=== PATIENT | female | born 1980 | race Caucasian/White ===

== ENCOUNTER 2021-01-11 16:13 | Emergency (ER) | payer MEDICAID, SELFPAY ==
[2021-01-11 16:20] VITALS: BP 151/86; PULSE 118; RESP 18; TEMP 36.9; O2SAT 98; BMI 22.4
--- NOTE | 2021-01-11 16:27 | CTR_ITS ---
PROCEDURE INFORMATION: Exam: CT Head Without Contrast Exam date and time: 01/11/2021 4:29 PM Age: 40 years old Clinical indication: Other: Seizure TECHNIQUE: Imaging protocol: Computed tomography of the head without contrast. Radiation optimization: All CT scans at this facility use at least one of these dose optimization techniques: automated exposure control; mA and/or kV adjustment per patient size (includes targeted exams where dose is matched to clinical indication); or iterative reconstruction. COMPARISON: CT head wo con* [id number] 04/24/2015 3:35 PM RADIATION DOSE METRICS: Total DLP (mGy-cm): 862.89 FINDINGS: Brain: No acute intracranial hemorrhage or mass effect. No definite acute infarct by CT. MRI could be more sensitive/specific for detection, as clinically directed. Cerebral ventricles: Ventricle size is normal for age. Paranasal sinuses: Included paranasal sinuses are essentially clear. Mastoid air cells: No significant acute finding. Bones/joints: No definite acute skull fracture. CT/CT head wo con* [id number] IMPRESSION: 1. No acute intracranial hemorrhage or mass effect. 2. No definite acute infarct by CT, see above. 3. Other findings discussed above. Radiation Dose CTDIVOL = (mGy): DLP = 862.89 (mGy-cm)
--- NOTE | 2021-01-11 16:29 | W.ED.SEIZURE ---
HPI - Seizure General: Chief Complaint: Seizure Stated Complaint: SEIZURE Time Seen by Provider: 01/11/21 16:22 History of Present Illness: HPI Narrative: 41-year-old female presents emergency room stating she had a seizure. States she has a history of seizures going back 10+ years. She tells me she takes Xanax several times a day to avoid her seizures she has not been on anything else for some time. She does states she previously had an EEG was done by Dr. Durham. She describes the seizures as tonic-clonic in nature. She does not appear to be postictal at this time. She has no head trauma there is no loss of bowel or bladder control. MD complaint: possible seizure Onset (ago): minute(s) Description of Episode: loss of consciousness and tonic-clonic movement Witnessed: Yes - by Bystander Trauma: No Seizure History: Yes Place: Work Possible Precipitating Event: none Associated symptoms: Deny chest pain, chills, confusion, cough, diaphoresis, fever(s), anorexia, malaise, rash, short of breath, syncope or weakness Treatments prior to arrival: none Review of Systems Const: Denies: fever(s), chills, malaise or diaphoresis ENMT: Denies: throat pain, ear or mastoid pain, nasal discharge or nasal congestion Card: Denies: chest pain or syncope Resp: Denies: dyspnea, productive cough or non-productive cough GI: Denies: abdominal pain, nausea, vomiting, hematemesis, coffee ground emesis, diarrhea, constipation, bloating, hematochezia or melena : Denies: flank pain, difficulty voiding, dysuria, urinary frequency or urinary urgency Skin/Breast: Denies: rash or pruritus Neuro: Denies: confusion Physical Exam Const: COMMON NORMALS: no acute distress GENERAL APPEARANCE: cooperative and comfortable ORIENTATION/CONSCIOUSNESS: Yes awake, Yes oriented to person, Yes oriented to place and Yes oriented to time HENMT: COMMON NORMALS: normocephalic, atraumatic, hearing grossly normal bilaterally and external ears normal HEAD & SCALP: normocephalic and atraumatic EXTERNAL EAR: Yes external ears normal Neck/C-Spine: COMMON NORMALS: no JVD Resp: COMMON NORMALS: normal respiratory effort, No retractions, No use of accessory muscles and clear to auscultation bilaterally AUSCULTATION: clear to auscultation bilaterally Cardio: COMMON NORMALS: no JVD, regular rate, regular rhythm and No murmurs present (Cardio) RATE: regular rate RHYTHM: regular rhythm GI: COMMON NORMALS: Soft to palpation and No hepatosplenomegaly present AUSCULTATION: Yes normoactive bowel sounds PALPATION: Yes Soft to palpation, No Tenderness to palpation present (GI), No Guarding due to palpation present (GI) and Yes No hepatosplenomegaly present Extremity: COMMON NORMALS: normal to inspection, capillary refill normal, no clubbing, cyanosis or edema, no calf tenderness and no pedal edema Neuro: SENSORIUM/ORIENTATION: Yes oriented to person, Yes oriented to place and Yes oriented to time Skin: COMMON NORMALS: no rashes or lesions noted GENERAL SKIN EXAM: no rashes or lesions noted Course Vital Signs: Vital signs: Vital Signs Temperature 98.4 F 01/11/21 16:20 Pulse Rate 105 H 01/11/21 18:11 Respiratory Rate 18 01/11/21 18:11 Blood Pressure 151/88 01/11/21 18:11 Pulse Oximetry 97 01/11/21 18:11 MDM - Seizure MDM Narrative: Medical decision making narrative: Patient was not postictal on arrival. Concerning and that she manages this seizure disorder with nothing but alprazolam. She states she has been doing this for several years. The remainder of labs and evaluation are negative. Organ to go ahead and discharge her home for now we will set up for an outpatient EEG and follow-up with Dr. Durham afterwards. Given the history and her presentation today I did not start her on any antiseizure medications at this time. Lab Data: Labs: Lab Results 01/11/21 01/11/21 Range/Units 16:36 16:36 WBC 11.6 H (4.0-10.0) 10^3/ uL RBC 5.47 H (4.1-5.3) 10^6/u L Hgb 16.5 H (11.5-15.3) g/dL Hct 47.8 H (37.0-47.0) % MCV 87.4 (81-99) fL MCH 30.2 (28.0-34.0) pg MCHC 34.5 (30.0-36.0) g/dL RDW 13.7 (12.1-15.1) % Plt Count 239 (130-400) 10^3/c mm MPV 10.4 (7.4-10.4) fL Neut % (Auto) 67.3 % Lymph % (Auto) 24.8 % [place] % (Auto) 5.7 % Eos % (Auto) 1.0 % Baso % (Auto) 0.8 % Neut # (Auto) 7.80 H (1.8-7.7) 10^3/u L Lymph # (Auto) 2.9 (0.8-4.8) 10^3/u L [place] # (Auto) 0.7 (0.2-0.9) 10^3/u L Eos # (Auto) 0.1 (0.0-0.8) 10^3/u L Baso # (Auto) 0.1 (0.0-0.1) 10^3/u L Nucleated RBC % (a uto) 0 % Nucleated RBCs # 0.0 /100WBC Sodium 136 (136-145) mmol/L Potassium 3.7 (3.5-5.1) mmol/L Chloride 102 (98-107) mmol/L Carbon Dioxide 19 L (22-29) mmol/L Anion Gap 18.7 (5-19) BUN 6 (6-20) mg/dL Creatinine 0.8 (0.5-0.9) mg/dL GFR Calculation 78.7 L (90-130) mL/min Glucose 113 (65-115) mg/dL Calculated Osmolal ity 280 L (285-295) mOsm/k g Calcium 9.1 (8.5-10.5) mg/dL Total Bilirubin 0.3 (0.15-1.2) mg/dL AST 15 (0-32) U/L ALT 13 (0-33) U/L Alkaline Phosphata se 64 (35-105) IU/L Total Protein 7.2 (6.6-8.7) g/dL Albumin 4.7 (3.5-5.2) g/dL Globulin 2.5 (1.3-4.6) g/dL Discharge Plan Discharge Patient Disposition: Home Clinical Impression: Generalized seizure Condition: Stable Prescriptions: No Action alprazolam 1 mg tablet 1 mg PO QID PRN (Reason: Anxiety) RF: 0 Discharge Orders: Discharge ED (Routine); Ordered 01/11/21 Ordered By: Car Garcia Referrals: Chantell Echeverria, [Primary Care Provider] - Discharge Diet: Usual diet Discharge Activity: Resume usual activity Patient Instructions: Opioid Safety Activity Restrictions/Additional Instructions: Case management will call to make an appointment with Dr. Durham for follow-up on seizures. We will also call to make an appointment for a EEG. Coding Level of Care Code ED Gear Grinding Machine Operator for Chg Fwd Exam Comprehensive
[2021-01-11 16:53] LABS: Basophils # 0.1 10^3/uL (0.0-0.1); Basophils % 0.8 %; Eosinophils # 0.1 10^3/uL (0.0-0.8); Hematocrit 47.8 % (37.0-47.0); Hemoglobin 16.5 g/dL (11.5-15.3); Lymphocytes # 2.9 10^3/uL (0.8-4.8); Lymphocytes % 24.8 %; Mean Corpuscular HGB Conc 34.5 g/dL (30.0-36.0); Mean Corpuscular Hemoglobin 30.2 pg (28.0-34.0); Mean Corpuscular Volume 87.4 fL (81-99); Mean Platelet Volume 10.4 fL (7.4-10.4); Monocytes # 0.7 10^3/uL (0.2-0.9); Monocytes % 5.7 %; Neutrophils % 67.3 %; Nucleated Red Blood Cells % 0 %; Platelet Count 239 10^3/cmm (130-400); Red Blood Count 5.47 10^6/uL (4.1-5.3); Red Cell Distribution Width 13.7 % (12.1-15.1); White Blood Count 11.6 10^3/uL (4.0-10.0)
[2021-01-11 17:40] LABS: Alanine Aminotransferase 13 U/L (0-33); Albumin Level 4.7 g/dL (3.5-5.2); Alkaline Phosphatase 64 IU/L (35-105); Anion Gap 18.7 (5-19); Aspartate Amino Transferase 15 U/L (0-32); Blood Urea Nitrogen 6 mg/dL (6-20); Calcium 9.1 mg/dL (8.5-10.5); Carbon Dioxide 19 mmol/L (22-29); Chloride 102 mmol/L (98-107); Globulin 2.5 g/dL (1.3-4.6); Glomerular Filtration Rate 78.7 mL/min (90-130); Glucose 113 mg/dL (65-115); Osmolality Calculated 280 mOsm/kg (285-295); Potassium 3.7 mmol/L (3.5-5.1); Sodium 136 mmol/L (136-145); Total Bilirubin 0.3 mg/dL (0.15-1.2); Total Protein 7.2 g/dL (6.6-8.7)
[2021-01-11 18:11] VITALS: BP 151/88; PULSE 105; RESP 18; O2SAT 97
--- NOTE | 2021-01-13 09:49 | DCPLANNER ---
Addendum entered by Ingrid Jean 01/18/21 11:45: manager cash sent email to Veronica at Dr. Tsang office to check on appointment for EEG and Dr. Durham. Original Note: manager cash had message to schedule an outpatient EEG and a follow up with Dr. Durham. manager cash faxed order for EEG to the office of Dr. Durham. manager cash emailed patients information to Veronica at Dr. Tsang office. Patients information will be printed and reviewed. Clinic will call patient with appointment information.
--- NOTE | 2021-01-23 07:33 | DCPLANNER ---
it help desk manager was told that when clinic called patient to schedule a follow up appointment, that patient declined at this time saying she wanted to follow up with primary care.
== END 2021-01-11 18:13 | disposition home or self-care (01) ==
PROVIDERS: Emergency Provider Family Medicine; PCP Family Medicine
DX: G40.409 Other generalized epilepsy and epileptic syndromes, not intractable, without status epilepticus (principal)
CPT/HCPCS: 70450; 80053; 85025; 99283

== ENCOUNTER → 2022-07-20 15:15 | Outpatient (BNVA) | payer MEDICAID, SELFPAY | PROVIDERS: PCP Family Medicine; Visit Provider Obstetrics & Gynecology | DX: R53.83 Other fatigue (principal) | CPT/HCPCS: 83001; 84146; 84443; 84702; 85025 ==

== ENCOUNTER → 2022-08-17 13:33 | Outpatient (BNVA) | payer MEDICAID, SELFPAY | PROVIDERS: PCP Family Medicine; Visit Provider Obstetrics & Gynecology | DX: R10.2 Pelvic and perineal pain (principal) | CPT/HCPCS: 76830 ==

== ENCOUNTER 2024-04-16 18:55 | Emergency (ER) | payer SELFPAY ==
[2024-04-16 19:07] VITALS: BP 171/93; PULSE 117; RESP 26; TEMP 39; O2SAT 98; BMI 22.3
--- NOTE | 2024-04-16 19:14 | XRR_ITS ---
PROCEDURE INFORMATION: Exam: XR Chest Exam date and time: 04/16/2024 7:30 PM Age: 43 years old Clinical indication: Shortness of breath; Additional info: Cough, TECHNIQUE: Imaging protocol: Radiologic exam of the chest. Views: 1 view. COMPARISON: No relevant prior studies available. FINDINGS: Lungs: Bilateral upper lobe pneumonia. Emphysematous changes. Pleural spaces: Unremarkable. No pleural effusion. No pneumothorax. Heart/Mediastinum: Unremarkable. No cardiomegaly. Bones/joints: Unremarkable. XR/XR chest 1V portable [id number] IMPRESSION: 1. Bilateral upper lobe pneumonia. 2. Emphysematous changes.
--- NOTE | 2024-04-16 19:16 | ED_ITS ---
HPI - SOB/Dyspnea 2 General: Chief Complaint: Shortness of Breath/Dyspnea Stated Complaint: CP worse when lay down SOB Time Seen by Provider: 04/16/24 19:14 History of Present Illness: HPI Narrative: 43-year-old female comes in today for co mplaints of illness x 3 days. Patient reports difficulty with lying flat due to not being able to breathe through her nose. Patient feels short of breath. Patient was seen to have a temperature of 102.2. Patient also was concerned due to having some crusted lesions 1 to her lower leg and 1 to her chest wall. Patient denies any chronic medical problems. Patient reports smoking tobacco but has not smoked since becoming ill. Patient has been using nicotine lozenges. Related Data Home Medications Medication Instructions Recorded Confirmed alprazolam 1 mg tablet 1 mg PO QID PRN Anxiety 01/11/21 10/12/22 norgestimate 0.25 mg-ethinyl 1 tab PO DAILY 07/20/22 10/12/22 estradiol 35 mcg tablet (Estarylla) Previous Rx's Medication Instructions Recorded albuterol sulfate 90 mcg/actuation 2 inh inhalation Q6H PRN shortness 04/16/24 aerosol inhaler of breath or wheezing #8.5 grams levofloxacin 500 mg tablet 500 mg PO DAILY 7 days #7 tabs 04/16/24 Allergies Allergy/AdvReac Type Severity Reaction Status Date / Time Penicillins Allergy Severe rash Verified 04/16/24 19:11 Review of Systems 2 General: Reports: 10 or more systems reviewed and unremarkable except in HPI and below Resp: Reports: dyspnea and non-productive cough PFS ED 2 PFSH: Family History Grandmother Thyroid condition maternal Breast cancer paternal, late 40's or early 50's Father Heart disease Family/Other Heart disease paternal uncles x2 Uterine cancer maternal aunt 47 y/o Ovarian cancer, Onset Age: 47 maternal aunt Mother Uterine cancer mid to late 40's Sister Uterine cancer, Onset Age: 38 Denies family history of Colon cancer Diabetes Clotting disorder Hyperlipidemia Anesthesia complication Bleeding disorder Hypertension Stroke Physical Exam 2 Const: COMMON NORMALS: alert HENMT: COMMON NORMALS: normocephalic HEAD & SCALP: normocephalic THROAT: posterior oropharynx normal Chest: COMMONS NORMALS: normal inspection of the chest Resp: COMMON NORMALS: normal respiratory effort and clear to auscultation bilaterally AUSCULTATION: clear to auscultation bilaterally Cardio: RATE: tachycardic GI: COMMON NORMALS: Soft to palpation PALPATION: Yes Soft to palpation Back/Pelvis: COMMON NORMALS: thoracic and lumbar spine normal to inspection Extremity: COMMON NORMALS: full ROM Neuro: SENSORIUM/ORIENTATION: Yes alert Skin: NARRATIVE SKIN EXAM: Healing crusted lesions Course 2 Vital Signs: Vital signs: Vital Signs Temperature 102.2 F H 04/16/24 19:07 Pulse Rate 116 H 04/16/24 20:30 Respiratory Rate 23 H 04/16/24 20:11 Blood Pressure 136/93 04/16/24 20:30 Pulse Oximetry 97 04/16/24 20:30 Oxygen Delivery Me thod Room Air 04/16/24 20:30 MDM - SOB/Dyspnea Medical Decision Making 43-year-old female comes in today for complaints of cough, fever, body aches, and illness x 3 days. Patient appears unwell but not toxic. Lungs have good air movement throughout. Patient is febrile 102.2 fever. Given is warm and dry. No edema's. Differential diagnosis pneumonia, bronchitis, upper respiratory infection, viral syndrome, dehydration. Chest x-ray noted bilateral upper lobe pneumonia and emphysematous changes. White blood cell count was 14,000. CRP was 150. CMP otherwise was unremarkable. Patient will be treated for bilateral upper lobe pneumonia with Levaquin. Lab Data 04/16/24 19:47 04/16/24 19:47 Labs/Radiology: Radiology Impressions Chest X-Ray 04/16/24 19:14 IMPRESSION: 1. Bilateral upper lobe pneumonia. 2. Emphysematous changes. Laboratory Results WBC 14.59 10^3/uL (3.29-11.43) H 04/16/24 19:47 RBC 4.73 10^6/uL (3.85-5.65) 04/16/24 19:47 Hgb 13.50 g/dL (11.27-16.99) 04/16/24 19:47 Hct 40.7 % (36-47) 04/16/24 19:47 MCV 86.0 fl (85-98) 04/16/24 19:47 MCH 28.5 pg (27-33) 04/16/24 19:47 MCHC 33.2 g/dL (30-55) 04/16/24 19:47 RDW 13.4 % (12.1-15.1) 04/16/24 19:47 Plt Count 408 10^3/cmm (157-399) H 04/16/24 19:47 MPV 9.1 fL (7.4-10.4) 04/16/24 19:47 Neut % (Auto) 67.2 % 04/16/24 19:47 Lymph % (Auto) 25.5 % 04/16/24 19:47 [place] % (Auto) 6.2 % 04/16/24 19:47 Eos % (Auto) 0.2 % 04/16/24 19:47 Baso % (Auto) 0.4 % 04/16/24 19:47 Neut # (Auto) 9.79 10^3/uL (1.8-7.7) H 04/16/24 19:47 Lymph # (Auto) 3.7 10^3/uL (0.8-4.8) 04/16/24 19:47 [place] # (Auto) 0.9 10^3/uL (0.2-0.9) 04/16/24 19:47 Eos # (Auto) 0.0 10^3/uL (0.0-0.8) 04/16/24 19:47 Baso # (Auto) 0.1 10^3/uL (0.0-0.1) 04/16/24 19:47 Nucleated RBC % (auto) 0 % 04/16/24 19:47 Nucleated RBCs # 0.0 /100WBC 04/16/24 19:47 Sodium 137 mmol/L (136-145) 04/16/24 19:47 Potassium 3.5 mmol/L (3.5-5.1) 04/16/24 19:47 Chloride 96 mmol/L (98-107) L 04/16/24 19:47 Carbon Dioxide 28 mmol/L (22-29) 04/16/24 19:47 Anion Gap 16.5 (5-19) 04/16/24 19:47 BUN 9 mg/dL (6-20) 04/16/24 19:47 Creatinine 0.8 mg/dL (0.5-0.9) 04/16/24 19:47 GFR Calculation 77.6 mL/min (90-130) L 04/16/24 19:47 Glucose 106 mg/dL (65-115) 04/16/24 19:47 Calculated Osmolality 283 mOsm/kg (285-295) L 04/16/24 19:47 Lactic Acid 1.6 mmol/L (0.5-2.2) 04/16/24 19:47 Calcium 9.0 mg/dL (8.5-10.5) 04/16/24 19:47 Total Bilirubin 0.3 mg/dL (0.15-1.2) 04/16/24 19:47 AST 20 U/L (0-32) 04/16/24 19:47 ALT 21 U/L (0-33) 04/16/24 19:47 Alkaline Phosphatase 110 U/L (35-105) H 04/16/24 19:47 C-Reactive Protein 153.7 mg/L (0.0-4.9) H 04/16/24 19:47 Total Protein 7.4 g/dL (6.6-8.7) 04/16/24 19:47 Albumin 3.6 g/dL (3.5-5.2) 04/16/24 19:47 Globulin 3.8 g/dL (1.3-4.6) 04/16/24 19:47 Coronavirus (PCR) Negative (Negative) 04/16/24 20:16 Influenza A (PCR) Negative (Negative) 04/16/24 20:16 Influenza Type B (PCR) Negative (Negative) 04/16/24 20:16 RSV (PCR) Negative (Negative) 04/16/24 20:16 All radiology interpretation(s) finalized by discharge EKG Data EKG 1: I personally reviewed and interpreted this EKG as follows: EKG Interpretation Date: 04/16/24 EKG interpretation time: 20:49 Prior EKG tracings: not available for review Interpretation: EKG shows a sinus tachycardia with a regular rate of the [address] elevations noted. No ectopy otherwise is noted. Artifact is present on the EKG. No prior exam was available for comparison. Computer Generated Interpretation: Sinus tachycardia with short NV interval. Nonspecific ST and T wave abnormality. Abnormal rhythm EKG. Unconfirmed report. Discharge Plan Discharge Patient Disposition: Home Clinical Impression: Pneumonia Qualifiers: Pneumonia type: due to unspecified organism Laterality: bilateral Lung location: upper lobe of lung Qualified Code(s): J18.9 - Pneumonia, unspecified organism Condition: Stable Prescriptions: New levofloxacin 500 mg tablet 500 mg PO DAILY 7 Days Qty: 7 0RF albuterol sulfate 90 mcg/actuation HFA aerosol inhaler 2 inh inhalation Q6H PRN (Reason: shortness of breath or wheezing) Qty: 8.5 0RF No Action norgestimate-ethinyl estradiol [Estarylla] 0.25-35 mg-mcg tablet 1 tab PO DAILY alprazolam 1 mg tablet 1 mg PO QID PRN (Reason: Anxiety) Discharge Orders: Discharge ED (Routine); Ordered 04/16/24 Ordered By: Jaison Alatorre Referrals: Chantell Echeverria DO [Primary Care Provider] - Discharge Diet: Usual diet Discharge Activity: Increase activity as tolerated Patient Instructions: Pneumonia (ED) Activity Restrictions/Additional Instructions: Drink plenty of water and fluids. Take antibiotic as directed. Use albuterol 2 puffs every 4-6 hours as needed for cough, shortness of breath, or wheezing. Take an acetaminophen or ibuprofen for pain and fever. Follow-up with primary care in 2 to 3 days for recheck. Return to ED for worsening symptoms such as inability to hold fluids down, worsening shortness of breath, or new concerns. Coding Level of Care Code ED Ice Cream Scooper for Guanako Heaton
[2024-04-16 19:53] LABS: Basophils # 0.1 10^3/uL (0.0-0.1); Basophils % 0.4 %; Eosinophils % 0.2 %; Hematocrit 40.7 % (36-47); Lymphocytes # 3.7 10^3/uL (0.8-4.8); Lymphocytes % 25.5 %; Mean Corpuscular HGB Conc 33.2 g/dL (30-55); Mean Corpuscular Hemoglobin 28.5 pg (27-33); Mean Platelet Volume 9.1 fL (7.4-10.4); Monocytes # 0.9 10^3/uL (0.2-0.9); Monocytes % 6.2 %; Neutrophils # 9.79 10^3/uL (1.8-7.7); Neutrophils % 67.2 %; Nucleated Red Blood Cells % 0 %; Platelet Count 408 10^3/cmm (157-399); Red Blood Count 4.73 10^6/uL (3.85-5.65); Red Cell Distribution Width 13.4 % (12.1-15.1); White Blood Count 14.59 10^3/uL (3.29-11.43)
--- NOTE | 2024-04-16 20:05 | ECG_ITS ---
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 Measurements Intervals [place] Rate: 120 P: 85 IL: 108 QRS: 74 QRSD: 81 T: 40 QT: 307 QTc: 434 Interpretive Statements SINUS TACHYCARDIA WITH SHORT IL INTERVAL NONSPECIFIC ST & T-WAVE ABNORMALITY ABNORMAL RHYTHM ECG Compared to ECG 04/24/2015 13:06:31 Short IL interval now present T-wave abnormality now present Sinus rhythm no longer present Electronically Signed On 04-17-2024 16:45:08 CDT by Maureen Gasca M.D. [id number] f
[2024-04-16 20:10] LABS: Alanine Aminotransferase 21 U/L (0-33); Albumin Level 3.6 g/dL (3.5-5.2); Alkaline Phosphatase 110 U/L (35-105); Anion Gap 16.5 (5-19); Aspartate Amino Transferase 20 U/L (0-32); Blood Urea Nitrogen 9 mg/dL (6-20); C Reactive Protein 153.7 mg/L (0.0-4.9); Carbon Dioxide 28 mmol/L (22-29); Chloride 96 mmol/L (98-107); Creatinine Clr Calc Pharmacy 79.0772; Globulin 3.8 g/dL (1.3-4.6); Glomerular Filtration Rate 77.6 mL/min (90-130); Glucose 106 mg/dL (65-115); Osmolality Calculated 283 mOsm/kg (285-295); Potassium 3.5 mmol/L (3.5-5.1); Sodium 137 mmol/L (136-145); Total Bilirubin 0.3 mg/dL (0.15-1.2); Total Protein 7.4 g/dL (6.6-8.7)
[2024-04-16 20:11] VITALS: BP 122/93; PULSE 116; RESP 23; O2SAT 93
[2024-04-16 20:11] LABS: Lactic Sepsis W/Reflex 1.6 mmol/L (0.5-2.2)
[2024-04-16] MEDS: sodium chloride 0.9% 1,000 ML 999 ML IV (20:22)
[2024-04-16 20:30] VITALS: BP 136/93; PULSE 116; O2SAT 97
[2024-04-16] MEDS: ibuprofen 600 mg Tablet PO (20:40)
[2024-04-16] MEDS: levofloxacin-dextrose 5 % 500 MG/100 ML PREMIX 100 MG IV (20:41)
[2024-04-16 21:01] LABS: Covid PCR NEGATIVE (Negative); Influenza A NEGATIVE (Negative); Influenza B NEGATIVE (Negative); Respiratory Syncytial Virus Ce NEGATIVE (Negative)
[2024-04-16] MEDS: albuterol 8 gm MDI 2 PUFF INHALATION (21:09)
[2024-04-16 21:11] VITALS: PULSE 104; RESP 22; O2SAT 95
[2024-04-16 21:52] VITALS: BP 126/87; PULSE 116; O2SAT 94
== END 2024-04-16 22:01 | disposition home or self-care (01) ==
PROVIDERS: Emergency Provider Nurse Practitioner Family; PCP Family Medicine
DX: J18.9 Pneumonia, unspecified organism (principal); R00.0 Tachycardia, unspecified
CPT/HCPCS: 0241U; 36415; 71045; 80053; 83605; 85025; 86140; 93005; 94640; 96365; 99285; J1956; J3535; J7030

== ENCOUNTER 2024-05-30 13:32 | Inpatient (IN) | payer SELFPAY ==
[2024-05-30] VITALS (114 sets, daily range): BP systolic 86–169; BP diastolic 64–113; PULSE 48–175; RESP 5–27; TEMP 35.9–36.7; O2SAT 93–99; BMI 23.0
--- NOTE | 2024-05-30 13:35 | ECG_ITS ---
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 Measurements Intervals [place] Rate: 55 P: 71 DE: 127 QRS: 69 QRSD: 81 T: 54 QT: 415 QTc: 399 Interpretive Statements SINUS BRADYCARDIA POSSIBLE LEFT ATRIAL ENLARGEMENT [-0.1mV P-WAVE IN V1/V2] Compared to ECG 04/16/2024 20:05:15 Sinus tachycardia no longer present Short DE interval no longer present T-wave abnormality no longer present Electronically Signed On 06-01-2024 00:08:59 CDT by Maureen Gasca M.D. [id number] f
--- NOTE | 2024-05-30 13:36 | XRR_ITS ---
PROCEDURE INFORMATION: Exam: XR Chest Exam date and time: 05/30/2024 1:49 PM Age: 43 years old Clinical indication: Cough; Patient HX: AMS; Found unresponsive; Chest congestion TECHNIQUE: Imaging protocol: Radiologic exam of the chest. Views: 1 view. COMPARISON: CR (CHEST, ) 04/16/2024 7:30 PM FINDINGS: Lungs: Decrease in the bilateral mid lung zone and right lung apex consolidations. No new consolidation. Pleural spaces: Unremarkable. No pleural effusion. No pneumothorax. Heart/Mediastinum: Unremarkable. No cardiomegaly. Bones/joints: Mild degenerative disease of bilateral acromioclavicular joints. XR/XR chest 1V portable [id number] IMPRESSION: Decrease in the bilateral mid lung zone and right lung apex consolidation. No new consolidation.
--- NOTE | 2024-05-30 13:37 | ED_ITS ---
HPI - General Adult 2 General: Chief complaint: Altered Mental Status Stated complaint: unresponsive Time Seen by Provider: 05/30/24 13:33 Source: EMS Mode of arrival: EMS Limitations: altered mental status History of Present Illness: 43-year-old female who is found in her c ar at a gas station unresponsive EMS states that her pupils been pinpoint she is currently unresponsive to me not able to get any history. They did not give Narcan they did get an IV. No signs of injury noted Related Data Home Medications Medication Instructions Recorded Confirmed alprazolam 1 mg tablet 1 mg PO QID PRN Anxiety 01/11/21 10/12/22 norgestimate 0.25 mg-ethinyl 1 tab PO DAILY 07/20/22 10/12/22 estradiol 35 mcg tablet (Estarylla) Previous Rx's Medication Instructions Recorded albuterol sulfate 90 mcg/actuation 2 inh inhalation Q6H PRN shortness 04/16/24 aerosol inhaler of breath or wheezing #8.5 grams Allergies Allergy/AdvReac Type Severity Reaction Status Date / Time Penicillins Allergy Severe rash Verified 04/16/24 19:11 Review of Systems 2 General: Reports: ROS unobtainable due to mental status PFSH ED 2 PFSH: Family History Grandmother Thyroid disease maternal Breast cancer paternal, late 40's or early 50's Father Heart disease Family/Other Heart disease paternal uncles x2 Uterine cancer maternal aunt 47 y/o Ovarian cancer, Onset Age: 47 maternal aunt Mother Uterine cancer mid to late 40's Sister Uterine cancer, Onset Age: 38 Denies family history of Colon cancer Diabetes Clotting disorder Hyperlipidemia Anesthesia complication Bleeding disorder Hypertension Stroke Physical Exam 2 Const: COMMON NORMALS: negative for patient oriented x3 HENMT: COMMON NORMALS: normocephalic and atraumatic HEAD & SCALP: n ormocephalic and atraumatic Eye: OTHER: pupils pinpoint Neck/C-Spine: COMMON NORMALS: full ROM and supple Chest: COMMONS NORMALS: normal inspection of the chest Resp: COMMON NORMALS: normal respiratory effort, No retractions, No use of accessory muscles and clear to auscultation bilaterally AUSCULTATION: clear to auscultation bilaterally Cardio: COMMON NORMALS: regular rate, regular rhythm and No murmurs present (Cardio) RATE: regular rate RHYTHM: regular rhythm GI: COMMON NORMALS: Normal to inspection, nondistended, normoactive bowel sounds present, Soft to palpation, non-tender and no masses PALPATION: Yes Soft to palpation Extremity: COMMON NORMALS: normal to inspection and full ROM Neuro: COMMON NORMALS: negative for patient oriented x3 Psych: COMMON NORMALS: negative for mental status grossly normal Skin: COMMON NORMALS: no rashes or lesions noted and no wounds GENERAL SKIN EXAM: no rashes or lesions noted Course 2 Vital Signs: Vital signs: Vital Signs Temperature 98.0 F 05/30/24 13:33 Pulse Rate 111 H 05/30/24 13:33 Respiratory Rate 22 H 05/30/24 13:33 Blood Pressure 169/113 05/30/24 13:33 Pulse Oximetry 97 05/30/24 13:33 Oxygen Delivery Me thod Room Air 05/30/24 13:33 MDM - General Adult Medical Decision Making Patient presents with altered mental status likely from an overdose she did have a animal tranquilizer on her and an empty needle head CT CT is normal neurologist did see here did not recommend any lytics. Patient's vitals here been stable I spoke to the hospitalist will admit to ICU Medical Records I reviewed the patient's medical records. Lab Data I reviewed the patient's lab results. 05/30/24 13:42 05/30/24 13:42 Radiology Impressions Chest X-Ray 05/30/24 13:36 IMPRESSION: Decrease in the bilateral mid lung zone and right lung apex consolidation. No new consolidation. Head CT 05/30/24 13:48 IMPRESSION: No large territorial infarct or intracranial bleed. ASSESSMENT: ASPECTS ([place] Stroke Program Early CT Score) is 10. Head/Neck CTA 05/30/24 13:48 IMPRESSION: No large vessel stenosis or occlusion. IMPRESSION: 1. No significant stenosis or vessel occlusion. 2. Patchy consolidation in the right upper lobe, likely infectious. REFERENCES: NASCET CRITERIA. The degree of stenosis in the cervical segment of the internal carotid artery is based on NASCET criteria. Normal is no stenosis. Mild is less than 50% stenosis. Moderate is 50-69% stenosis. Severe is 70% to 99% stenosis. Total occlusion is no detectable patent lumen. Laboratory Results WBC 9.51 10^3/uL (3.29-11.43) 05/30/24 13:42 RBC 4.94 10^6/uL (3.85-5.65) 05/30/24 13:42 Hgb 14.30 g/dL (11.27-16.99) 05/30/24 13:42 Hct 44.3 % (36-47) 05/30/24 13:42 MCV 89.7 fl (85-98) 05/30/24 13:42 MCH 28.9 pg (27-33) 05/30/24 13:42 MCHC 32.3 g/dL (30-55) 05/30/24 13:42 RDW 15.0 % (12.1-15.1) 05/30/24 13:42 Plt Count 252 10^3/cmm (157-399) 05/30/24 13:42 MPV 9.6 fL (7.4-10.4) 05/30/24 13:42 Neut % (Auto) 48.9 % 05/30/24 13:42 Lymph % (Auto) 43.4 % 05/30/24 13:42 Lawrence % (Auto) 5.4 % 05/30/24 13:42 Eos % (Auto) 1.3 % 05/30/24 13:42 Baso % (Auto) 0.8 % 05/30/24 13:42 Neut # (Auto) 4.65 10^3/uL (1.8-7.7) 05/30/24 13:42 Lymph # (Auto) 4.1 10^3/uL (0.8-4.8) 05/30/24 13:42 Lawrence # (Auto) 0.5 10^3/uL (0.2-0.9) 05/30/24 13:42 Eos # (Auto) 0.1 10^3/uL (0.0-0.8) 05/30/24 13:42 Baso # (Auto) 0.1 10^3/uL (0.0-0.1) 05/30/24 13:42 Nucleated RBC % (auto) 0 % 05/30/24 13:42 Nucleated RBCs # 0.0 /100WBC 05/30/24 13:42 PT 13.40 SECONDS (12.1-14.9) 05/30/24 13:42 INR 0.99 (0.8-1.2) 05/30/24 13:42 Specimen Type Arterial 05/30/24 14:10 Sample Site Radial, left 05/30/24 14:10 ABG pH 7.39 (7.35-7.45) 05/30/24 14:10 ABG pCO2 37.8 mmHg (35-45) 05/30/24 14:10 ABG pO2 78.7 mmHg (80.0-100.0) L 05/30/24 14:10 ABG PO2/FiO2 Ratio 374 05/30/24 14:10 ABG HCO3 22.7 mmol/L (22-26) 05/30/24 14:10 ABG O2 Saturation 97.2 05/30/24 14:10 ABG Base Excess -1.9 mmol/L (-2.0-2.0) 05/30/24 14:10 [place] Test Pos 05/30/24 14:10 A-a O2 Gradient 3.3 mmHg (5-10) L 05/30/24 14:10 Hematocrit 43.6 % (37-47) 05/30/24 14:10 Hgb O2 Saturation 90.2 % (95-100) L 05/30/24 14:10 Carboxyhemoglobin 6.1 %THgb (0.4-20.1) 05/30/24 14:10 Methemoglobin 1.1 % (0.4-1.5) 05/30/24 14:10 Total Hemoglobin 14.2 g/dL (12-16) 05/30/24 14:10 Sodium 139.0 mmol/L (131-143) 05/30/24 14:10 Potassium 3.4 mmol/L (3.5-5.0) L 05/30/24 14:10 Glucose 122.0 mg/dL (70-115) H 05/30/24 14:10 Ionized Calcium 1.2 mmol/L (1.1-1.4) 05/30/24 14:10 O2 Delivery Device None 05/30/24 14:10 FiO2 21.0 % 05/30/24 14:10 Cabin Crew ID glc 05/30/24 14:10 Sodium 136 mmol/L (136-145) 05/30/24 13:42 Potassium 4.0 mmol/L (3.5-5.1) 05/30/24 13:42 Chloride 105 mmol/L (98-107) 05/30/24 13:42 Carbon Dioxide 21 mmol/L (22-29) L 05/30/24 13:42 Anion Gap 14.0 (5-19) 05/30/24 13:42 BUN 8 mg/dL (6-20) 05/30/24 13:42 Creatinine 0.9 mg/dL (0.5-0.9) 05/30/24 13:42 GFR Calculation 67.7 mL/min (90-130) L 05/30/24 13:42 Glucose 126 mg/dL (65-115) H 05/30/24 13:42 POC Glucose 131 mg/dL (70-110) H 05/30/24 13:51 Calculated Osmolality 282 mOsm/kg (285-295) L 05/30/24 13:42 Calcium 8.2 mg/dL (8.5-10.5) L 05/30/24 13:42 Total Bilirubin 0.2 mg/dL (0.15-1.2) 05/30/24 13:42 AST 17 U/L (0-32) 05/30/24 13:42 ALT 18 U/L (0-33) 05/30/24 13:42 Alkaline Phosphatase 63 U/L (35-105) 05/30/24 13:42 Total Protein 6.8 g/dL (6.6-8.7) 05/30/24 13:42 Albumin 3.9 g/dL (3.5-5.2) 05/30/24 13:42 Globulin 2.9 g/dL (1.3-4.6) 05/30/24 13:42 HCG, Qual Negative (Negative) 05/30/24 14:33 Salicylates 5.0 mg/dL (3-10) 05/30/24 13:42 Urine Opiates Screen Negative ng/mL (Negative) 05/30/24 14:33 Acetaminophen < 5.0 ug/mL (10-30) L 05/30/24 13:42 Ur Barbiturates Screen Negative ng/mL (Negative) 05/30/24 14:33 Ur Phencyclidine Scrn Negative ng/mL (Negative) 05/30/24 14:33 Ur Amphetamines Screen Negative ng/mL (Negative) 05/30/24 14:33 U Benzodiazepines Scrn Positive ng/mL (Negative) H 05/30/24 14:33 Urine Cocaine Screen Negative ng/mL (Negative) 05/30/24 14:33 U Marijuana (THC) Screen Negative ng/mL (Negative) 05/30/24 14:33 Ethyl Alcohol < 10 mg/dL (0-10) 05/30/24 13:42 All radiology interpretation(s) finalized by discharge EKG Data EKG 1: I personally reviewed and interpreted this EKG as follows: EKG interpretation date: 05/30/24 EKG interpretation time: 13:33 Interpretation: sinus alysia hr [address] elevation qrs 81 qtc 404 Computer generated interpretation: Chest X-Ray 05/30/24 13:36 IMPRESSION: Decrease in the bilateral mid lung zone and right lung apex consolidation. No new consolidation. Head CT 05/30/24 13:48 IMPRESSION: No large territorial infarct or intracranial bleed. ASSESSMENT: ASPECTS ([place] Stroke Program Early CT Score) is 10. Head/Neck CTA 05/30/24 13:48 IMPRESSION: No large vessel stenosis or occlusion. IMPRESSION: 1. No significant stenosis or vessel occlusion. 2. Patchy consolidation in the right upper lobe, likely infectious. REFERENCES: NASCET CRITERIA. The degree of stenosis in the cervical segment of the internal carotid artery is based on NASCET criteria. Normal is no stenosis. Mild is less than 50% stenosis. Moderate is 50-69% stenosis. Severe is 70% to 99% stenosis. Total occlusion is no detectable patent lumen. Critical Care Time 2 Critical Care Time: Critical Care Time: Yes Total Critical Care Time: 40 Attestation: The high probability of a clinically significant, sudden or life threatening deterioration of the patient's neuro system(s) required my full and direct attention, intervention and personal management. The critical care time is as shown. This time is in addition to time spent performing any reported procedures but includes the following: [x] Data and vital sign review and interpretation [x] Patient assessment, examination and intervention [x] Documentation [x] Medication orders and management Discharge Plan Discharge Patient Disposition: Admitted As Inpatient Clinical Impression: Altered mental status Condition: Stable Coding Level of Care Code ED Scale And Skip Car Operator for Guanako Heaton
[2024-05-30] MEDS: naloxone 0.4 mg/ml SDV 1 MG IVP (13:42)
--- NOTE | 2024-05-30 13:48 | CTR_ITS ---
PROCEDURE INFORMATION: Exam: CT Head Without Contrast Exam date and time: 05/30/2024 1:51 PM Age: 43 years old Clinical indication: Altered mental status/memory loss; Patient HX: Unresponsive; Additional info: AMS TECHNIQUE: Imaging protocol: Computed tomography of the head without contrast. Radiation optimization: All CT scans at this facility use at least one of these dose optimization techniques: automated exposure control; mA and/or kV adjustment per patient size (includes targeted exams where dose is matched to clinical indication); or iterative reconstruction. Other technique: STROKE PROTOCOL was implemented. COMPARISON: CT angio headneck* [id number] 05/30/2024 1:51 PM RADIATION DOSE METRICS: Total DLP (mGy-cm): 1141.9 FINDINGS: Brain: Hypodensities in the left frontal and left parietal centrum semiovale, likely representing chronic ischemic small vessel disease. No large territorial infarct, intracranial bleed or mass effect. Cerebral ventricles: No ventriculomegaly. Paranasal sinuses: Visualized sinuses are unremarkable. No fluid levels. Mastoid air cells: Visualized mastoid air cells are well aerated. Bones: Unremarkable. No acute fracture. Soft tissues: Unremarkable. CT/CT head wo con* [id number] IMPRESSION: No large territorial infarct or intracranial bleed. ASSESSMENT: ASPECTS ([place] Stroke Program Early CT Score) is 10.
--- NOTE | 2024-05-30 13:48 | CTR_ITS ---
PROCEDURE INFORMATION: Exam: CTA Head With Contrast, Arteriography Exam date and time: 05/30/2024 1:51 PM Age: 43 years old Clinical indication: Other: Unresponsive; Additional info: AMS PT here via EMS. EMS states that PT was found unresponsive in a car with a syringe in her lap. Pd found a zoo medication in PT car, name of medication bam butorphanol tartrate 27.3 mg/ml, azaperone 9.1 mg/ml, medetomidine hcl 10.9 mg/ml per EMS. PT blood glucose 106 per EMS. PT resp even and unlabored at this time. PT is unresponsive. TECHNIQUE: Imaging protocol: Computed tomographic angiography of the head with contrast. Exam focused on the arteries. 3D rendering (Not supervised by radiologist): MIP and/or 3D reconstructed images were created by the technologist. Radiation optimization: All CT scans at this facility use at least one of these dose optimization techniques: automated exposure control; mA and/or kV adjustment per patient size (includes targeted exams where dose is matched to clinical indication); or iterative reconstruction. Contrast material: OMNI 350; Contrast volume: 100 ml; Contrast route: INTRAVENOUS (IV); COMPARISON: CT head wo con* [id number] 05/30/2024 1:51 PM RADIATION DOSE METRICS: Total DLP (mGy-cm): 393.02 FINDINGS: ANTERIOR CIRCULATION: Right internal carotid artery: Intracranial segment is patent with no significant stenosis. No aneurysm. Right middle cerebral artery: No occlusion or significant stenosis. No aneurysm. Right anterior cerebral artery: No occlusion or significant stenosis. No aneurysm. Left internal carotid artery: Intracranial segment is patent with no significant stenosis. No aneurysm. Left middle cerebral artery: No occlusion or significant stenosis. No aneurysm. Left anterior cerebral artery: No occlusion or significant stenosis. No aneurysm. POSTERIOR CIRCULATION: Right vertebral artery: No occlusion or significant stenosis. No aneurysm. Left vertebral artery: No occlusion or significant stenosis. No aneurysm. Basilar artery: No occlusion or significant stenosis. No aneurysm. Right posterior cerebral artery: No occlusion or significant stenosis. No aneurysm. Left posterior cerebral artery: No occlusion or significant stenosis. No aneurysm. Brain: No definite mass, mass effect, or midline shift. Cerebral ventricles: No ventriculomegaly. Bones/joints: Unremarkable. No acute fracture. Soft tissues: Unremarkable. PROCEDURE INFORMATION: Exam: CTA Neck With Contrast Exam date and time: 05/30/2024 1:51 PM Age: 43 years old Clinical indication: Other: Unresponsive; Additional info: AMS PT here via EMS. EMS states that PT was found unresponsive in a car with a syringe in her lap. Pd found a zoo medication in PT car, name of medication bam butorphanol tartrate 27.3 mg/ml, azaperone 9.1 mg/ml, medetomidine hcl 10.9 mg/ml per EMS. PT blood glucose 106 per EMS. PT resp even and unlabored at this time. PT is unresponsive. TECHNIQUE: Imaging protocol: Computed tomographic angiography of the neck with contrast. Exam focused on the cervical segments of the vasculature. 3D rendering (Not supervised by radiologist): MIP and/or 3D reconstructed images were created by the technologist. Radiation optimization: All CT scans at this facility use at least one of these dose optimization techniques: automated exposure control; mA and/or kV adjustment per patient size (includes targeted exams where dose is matched to clinical indication); or iterative reconstruction. Contrast material: OMNI 350; Contrast volume: 100 ml; Contrast route: INTRAVENOUS (IV); COMPARISON: CT head wo con* [id number] 05/30/2024 1:51 PM RADIATION DOSE METRICS: Total DLP (mGy-cm): 393.02 FINDINGS: Right common carotid artery: No stenosis. No dissection or occlusion. Right internal carotid artery: No stenosis of the extracranial segment. No dissection or occlusion. Right external carotid artery: No occlusion or stenosis of the origin. Left common carotid artery: No stenosis. No dissection or occlusion. Left internal carotid artery: Calcified atheroma of the left proximal ICA but no significant stenosis. Left external carotid artery: No occlusion or stenosis of the origin. Right vertebral artery: No stenosis. No dissection or occlusion. Left vertebral artery: No stenosis. No dissection or occlusion. Soft tissues: Normal. No significant soft tissue swelling. Bones/joints: Small posterior osteophytes at C4-C5 and C5-C6 levels but no significant bony canal stenosis. Lungs: Patchy consolidation in the right upper lobe measuring 1.[address]/CT angio headneck* [id number] IMPRESSION: No large vessel stenosis or occlusion. IMPRESSION: 1. No significant stenosis or vessel occlusion. 2. Patchy consolidation in the right upper lobe, likely infectious. REFERENCES: NASCET CRITERIA. The degree of stenosis in the cervical segment of the internal carotid artery is based on NASCET criteria. Normal is no stenosis. Mild is less than 50% stenosis. Moderate is 50-69% stenosis. Severe is 70% to 99% stenosis. Total occlusion is no detectable patent lumen.
[2024-05-30 13:54] LABS: Glucose Point of Care 131 mg/dL (70-110)
[2024-05-30 13:54] LABS: Basophils # 0.1 10^3/uL (0.0-0.1); Basophils % 0.8 %; Eosinophils # 0.1 10^3/uL (0.0-0.8); Eosinophils % 1.3 %; Hematocrit 44.3 % (36-47); Lymphocytes # 4.1 10^3/uL (0.8-4.8); Lymphocytes % 43.4 %; Mean Corpuscular HGB Conc 32.3 g/dL (30-55); Mean Corpuscular Hemoglobin 28.9 pg (27-33); Mean Corpuscular Volume 89.7 fl (85-98); Mean Platelet Volume 9.6 fL (7.4-10.4); Monocytes # 0.5 10^3/uL (0.2-0.9); Monocytes % 5.4 %; Neutrophils # 4.65 10^3/uL (1.8-7.7); Neutrophils % 48.9 %; Nucleated Red Blood Cells % 0 %; Platelet Count 252 10^3/cmm (157-399); Red Blood Count 4.94 10^6/uL (3.85-5.65); White Blood Count 9.51 10^3/uL (3.29-11.43)
--- NOTE | 2024-05-30 13:55 | PC.NURSE ---
per contact in chart, pt's son, last known time he spoke with pt was approx [id number].
[2024-05-30] MEDS: iohexol 350 mg/mL 500 mL Btl (per mL) IV (13:58)
[2024-05-30 14:01] LABS: INR 0.99 (0.8-1.2)
[2024-05-30 14:09] LABS: Alanine Aminotransferase 18 U/L (0-33); Albumin Level 3.9 g/dL (3.5-5.2); Alkaline Phosphatase 63 U/L (35-105); Aspartate Amino Transferase 17 U/L (0-32); Blood Urea Nitrogen 8 mg/dL (6-20); Calcium 8.2 mg/dL (8.5-10.5); Carbon Dioxide 21 mmol/L (22-29); Chloride 105 mmol/L (98-107); Creatinine Clr Calc Pharmacy 72.5519; Globulin 2.9 g/dL (1.3-4.6); Glomerular Filtration Rate 67.7 mL/min (90-130); Glucose 126 mg/dL (65-115); Osmolality Calculated 282 mOsm/kg (285-295); Sodium 136 mmol/L (136-145); Total Bilirubin 0.2 mg/dL (0.15-1.2); Total Protein 6.8 g/dL (6.6-8.7)
[2024-05-30 14:13] LABS: Acetaminophen < 5.0 ug/mL (10-30); Alcohol Level < 10 mg/dL (0-10)
[2024-05-30 14:22] LABS: ABG PCO2 37.8 mmHg (35-45); ABG PH Result 7.39 (7.35-7.45); Alveolar-Arterial Oxygen Gradi 3.3 mmHg (5-10); Arterial Blood Gas Hematocrit 43.6 % (37-47); Base Excess ABG -1.9 mmol/L (-2.0-2.0); Blood Gas Allen Test Pos; Blood Gas Operator Identificat glc; Blood Gas Sample Site Radial, left; Blood Gas Sample Type Arterial; Carboxyhemoglobin 6.1 %THgb (0.4-20.1); HCO3 ABG 22.7 mmol/L (22-26); HGB O2 Sat 90.2 % (95-100); Ionized Calcium Level - ABG 1.2 mmol/L (1.1-1.4); Methemoglobin 1.1 % (0.4-1.5); Oxygen Saturation ABG 97.2; PO2 ABG 78.7 mmHg (80.0-100.0); PO2 FiO2 Ratio Arterial Blood 374; Potassium Level - ABG 3.4 mmol/L (3.5-5.0); Total Hemoglobin 14.2 g/dL (12-16)
--- NOTE | 2024-05-30 14:23 | PC.NURSE ---
This nurse contacted poison control via phone regarding medication by the name of BAM. Maggie VAN with poison control said they did not have kinetics on the medication as it is used for animals. Maggie VAN recommended a UDS, acetaminophen level, and an aspirin level. Maggie VAN said to provide supportive care at this time. Poison control to contact us via phone once they talk to the library associate.
--- NOTE | 2024-05-30 14:34 | PC.NURSE ---
medication vial fell out of pt's pants, has pink label stating: DEEPA Butorphanol Tartrate 27.3 mg/mL Azaperone 9.1 mg/mL Medetomidine HCl 10.9 mg/mL For Veterinary Use ONLY. Contact [employer] if product becomes discolored or cloudy. Net Contents: 11mL Lot# [id number] Use by: 10/21/2023 Compounded By [employer] NOT FOR RESALE.
--- NOTE | 2024-05-30 14:36 | PM.SAN ---
Stroke Alert Activation ED Arrival Date: 05/30/24 ED Arrival Time: 13:33 ED Physican at Bedside: 13:33 Last Known Normal/at Baseline: 3-4 hours ago Other Last Known Well Infomation: She was found of a gas station comatose inside of a vehicle. There were several vials of sedative located within the vehicle including Butorphanol tartrate, Azaperone and Medetomidine. These materials are major tranquilizers used for large animals (i.e. elephants and swine). There was a syringe found inside the vehicle. Staff were able to connect with the patient's son who reported that he had talked with her 45 minutes prior. When the patient was brought into the emergency department a vial fell out of her pants called BAM, which is also a major sedative. That vial has a small amount of medication missing, the top was pulled back and there was a needle size hole in the lid. The patient did not respond to Narcan. She has a history of benzodiazepine use and there was concern to trigger a seizure with Romazicon. Her vitals have been stable thus far including pulse and respirations. The [place] Department of Health and Human Services is warning [place] residents about medetomidine, a new drug identified in overdose deaths.? Medetomidine is a veterinary tranquilizer, similar to xylazine, that can cause adverse effects including slowed heart rate, low blood pressure and decreases in brain and spinal cord activity. It is not approved for use in people. According to data provided by the [place] Toxicology of Opioid Related Mortalities (STORM) project at [facility] [employer], since October, three overdose deaths have identified medetomidine during postmortem toxicology testing. The deaths occurred in [facility] and [facility]. In addition to medetomidine, testing also identified fentanyl and other potent manufactured drugs. [facility] is particularly concerned about this drug for the following reasons: Medetomidine can cause central nervous system depression and . Like xylazine, medetomidine is not reversed by medications such as naloxone or Narcan. Unlike xylazine, testing strips are not yet available to detect this particular drug . Stroke Alert Activated by: Dr. Muonz Stroke Alert Activation Time: 13:49 Stroke MD @ Bedside Time: 13:50 NIH Stroke Scale Time: 14:00 NIH stroke score NIHSS: Level Of Consciousness - 1a: 3 Level Of Consciousness Questions - 1b: Neither Correct Level Of Consciousness Commands - 1c: Neither Correct Best Gaze - 2: Normal Visual [place]y - 3: Bilateral Facial Palsy - 4: Partial Paralysis Motor Arm Right - 5: No Movement Motor Arm Left - 5: No Movement Motor Leg Right - 6: No Movement Motor Leg Left - 6: No Movement Limb Ataxia - 7: Absent Sensory - 8: Severe To Total Loss Best Language - 9: Mute; Global Aphasia Dysarthia - 10: Normal Extinction And Inattention - 11: 0 Score: Total Score: 33 Stroke Alert Data/Treatment Time to CT of Head: 13:50 CT Results Time: 13:50 CT Impression: CT head normal except for chronic white matter changes. 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 She has been upset about personal matters Other Information: I saw this patient in 2009 for epilepsy. She was noncompliant on follow-up visits and I saw her again in 2011. At that time she was mildly encephalopathic from heavy use of benzodiazepines and opioids but it was my impression that she does have a generalized tonic-clonic seizure disorder. She was last seen here with a seizure in 2020 and her CO2 was low, consistent with her having had a seizure that day. Critical Care Time Critical Care Time: 30 - 74 mins A&P Assessment and plan (1) Drug overdose, intentional: This patient presents with profound coma. She has absent corneals. Absent doll's eyes. Pinpoint pupils. She is flaccid in all 4 extremities. Plantar response neither flexor nor extensor. No response to pain including nailbed pressure, supraorbital pressure. Her pulse, blood pressure and respirations are stable and she is not hypoxic. She has normal perfusion to the brain based on CT angiogram with no sign of posterior circulation ischemia. Her CT scan of the head, reviewed by me, is normal. Supportive care. Based on the history she is probably very early in his overdose and could still deteriorate. Reports on the substances indicate that they have been responsible for an increasing number of overdose deaths. (2) Generalized epilepsy: She has a history of generalized epilepsy but as far as I know she has not been on anticonvulsants for more than 10 years. Coding Level of Care Code Acute Code for Chg Fwd Diagnoses Drug overdose, intentional T50.902A Generalized epilepsy G40.309
--- NOTE | 2024-05-30 14:48 | P.HP_ITS ---
Providers/Chief Complaint 2 Primary Care Provider: Chantell Echeverria DO Chief Complaint: unresponsive History of Present Illness Bev Lynn is a 43 year old female with history of menorrhagia, pelvic pain was brought into the hospital via EMS found unresponsive in her car at a gas station. Does have pinpoint pupils. Patient unable to provide any history. In the ER code stroke was called. She was assessed by neurologist Dr. Durham at the bedside. Patient was given 3 doses of Narcan with not much improvement. There were several vials of sedative located when the vehicle including Butorphanol tartrate, Azaperone and Medetomidine. These materials are major tranquilizers used for large animals (i.e. elephants and swine). There was a syringe found inside the vehicle. Staff were able to connect with the patient's son who reported that he had talked with her 45 minutes prior. When the patient was brought into the emergency department a vial fell out of her pants called BAM, which is also a major sedative. That vial has a small amount of medication missing, the top was pulled back and there was a needle size hole in the lid. The patient did not respond to Narcan. She has a history of benzodiazepine use and there was concern to trigger a seizure with Romazicon. Her vitals have been stable thus far including pulse and respirations. History obtained from neurology, ER note above. Chest x-ray does show decrease in bilateral midlung zone and right lung apex consolidation. No new consolidation. CT head negative for stroke or intracranial bleed CTA head and neck negative. Spoke to family at bedside. They state that they last spoke to her around noon and she was fine. She works at an [employer]. She has been stressed out and recently went through a divorce. She does take Xanax at home. Patient's [id number] went through patient's first and found a bottle of Xanax and trazodone. Trazodone bottle was completely empty which was filled on 05/07 and Xanax bottle only had 29 tablets and there which was filled on May 25 120 total. Medications/Allergies Home Medications Medication Instructions Recorded Confirmed Last Taken Type alprazolam 1 mg tablet 1 mg PO QID PRN Anxiety 01/11/21 05/31/24 Unknown History norgestimate 0.25 mg-ethinyl 1 tab PO DAILY 12/16/22 10/27/24 Unknown History estradiol 35 mcg tablet (Estarylla) albuterol sulfate 90 mcg/actuation 2 inh inhalation Q6H PRN shortness 04/16/24 05/31/24 Unknown Rx aerosol inhaler of breath or wheezing #8.5 grams Allergies Allergy/AdvReac Type Severity Reaction Status Date / Time Penicillins Allergy Severe rash Verified 04/16/24 19:11 PFSH Acute 2 PFSH: Family History Grandmother Thyroid disease maternal Breast cancer paternal, late 40's or early 50's Father Heart disease Family/Other Heart disease paternal uncles x2 Uterine cancer maternal aunt 47 y/o Ovarian cancer, Onset Age: 47 maternal aunt Mother Uterine cancer mid to late 40's Sister Uterine cancer, Onset Age: 38 Denies family history of Colon cancer Diabetes Clotting disorder Hyperlipidemia Anesthesia complication Bleeding disorder Hypertension Stroke Vitals/I&O/Wt Last Vital Signs Temp 98.0 F 05/30/24 13:33 Pulse 111 H 05/30/24 13:33 Resp 22 H 05/30/24 13:33 BP 169/113 05/30/24 13:33 Pulse Ox 97 05/30/24 13:33 O2 Del Method Room Air 05/30/24 13:33 Weight last 48 hrs Weight 63.503 kg Physical Exam 2 Narrative: General: Sedated, unresponsive HEENT: Normocephalic, atraumatic, EOMI, breathing room air saturating 97%. Cardio: Regular rate rhythm, normal S1-S2, Respiratory: Clear to auscultation bilaterally GI: Abdomen soft, nontender, nondistended, bowel sounds + Extremities: No edema neuro: Unresponsive, pinpoint pupils, completely flaccid, no muscle tone, does not wake up to sternal rub Data 05/31/24 04:33 05/31/24 08:09 A&P Assessment and plan (1) Drug overdose, intentional: (2) Altered mental status: (3) Generalized epilepsy: (4) Xanax overdose: Plan #Drug overdose with veterinary sedative medication suspected #Unresponsive state secondary to above #Did not respond to Narcan #Possible pneumonia ? History of anxiety? ? Admit to ICU at this time for closer monitoring. Provide supportive care. ? Poison control was contacted. No specific instructions given. ? Blood pressure elevated. Watch for hypotension, seizures ? Seizure precautions, elopement precautions, fall precautions ? Continue to monitor patient's respiratory status. If deterioration noted we will plan to intubate ? Continue normal saline 75 cc/h ? Strictly n.p.o. ? Nursing dysphagia screen 1 and if patient wakes up ? Placed on ceftriaxone azithromycin for potential pneumonia ? Check sputum Gram stain culture, blood culture ? Urine drug screen pending ? Consult psychiatry. Patient will need to be placed on a 96-hour hold. -High clinical suspicion that patient possibly ingested or injected herself with deer tranquilizer that was found in her pocket. Patient is flaccid in a comatose state however his breathing. ? Potential drug overdose with Xanax and trazodone along with dual tranquilizer. ? Low threshold to intubate patient. Will continue to monitor. Full code DVT prophylaxis: Heparin subcu twice daily Attestations 2 Medical Necessity Statement*: Drug overdose Critical Care Time: The high probability of a clinically significant, sudden or life threatening deterioration of the patient's [respiratory, cardiovascular, neurological] system(s) required my full and direct attention, intervention and personal management. The critical care time is as shown. This time is in addition to time spent performing any reported procedures but includes the following: [x] Data and vital sign review and interpretation [x] Patient assessment, examination and intervention [x] Documentation [x] Medication orders and management Critical Care Time (min): 45 Coding Level of Care Code Critical Care >/= 30 minutes Critical care time (in minutes): 45 The high probability of a clinically significant, sudden or life threatening deterioration, as referenced in this documentation, required my full and direct attention, intervention and personal management. The critical care time shown is in addition to time spent performing any reported separately billable procedures and includes the following: [x] Data and vital sign review and interpretation [x ] Patient assessment, examination and intervention [x] Medication orders and management [x] Patient/Family updates as able [x] Care Coordination and Documentation. Diagnoses Drug overdose, intentional T50.902A Altered mental status R41.82 Generalized epilepsy G40.309 Xanax overdose T42.4X1A
[2024-05-30 14:51] LABS: HCG Qualitative Urine. Negative (Negative)
[2024-05-30 14:57] LABS: Amphetamines Screen Urine Negative (Negative); Barbiturates Screen Urine Negative (Negative); Benzodiazepines Screen Urine Positive (Negative); Cocaine Screen Urine Negative (Negative); Opiate Screen Urine Negative (Negative); PCP Screen Urine Negative (Negative); THC Screen Urine Negative (Negative)
[2024-05-30] MEDS: naloxone 0.4 mg/ml SDV 2 MG IVP (14:57)
[2024-05-30] MEDS: cefTRIAXone 1,000 mg SDV 1000 MG IVP (15:21)
[2024-05-30] MEDS: AZITHROMYCIN ADD-Vantage 500 MG in 0.9% NaCl ADD-Vantage 250 ML 250 MG IV (15:21)
--- NOTE | 2024-05-30 15:26 | ECG_ITS ---
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 Measurements Intervals [place] Rate: 58 P: 75 MS: 147 QRS: 70 QRSD: 86 T: 57 QT: 433 QTc: 426 Interpretive Statements SINUS BRADYCARDIA POSSIBLE LEFT ATRIAL ENLARGEMENT [-0.1mV P-WAVE IN V1/V2] Compared to ECG 05/30/2024 13:33:46 No significant changes Electronically Signed On 06-02-2024 00:53:15 CDT by Maureen Gasca M.D. [id number]
[2024-05-30] MEDS: heparin 5,000 unit/mL INJ 1 mL 5000 UNIT SUBCUT (15:27)
[2024-05-30] MEDS: sodium chloride 0.9% 1,000 ML 75 ML IV (15:35)
[2024-05-30 15:41] LABS: Procalcitonin 0.02 ng/mL (0-0.5)
[2024-05-30 15:49] LABS: Blood Urea Nitrogen 8 mg/dL (6-20); Calcium 8.5 mg/dL (8.5-10.5); Carbon Dioxide 20 mmol/L (22-29); Chloride 105 mmol/L (98-107); Creatinine Clr Calc Pharmacy 72.5519; Glomerular Filtration Rate 67.7 mL/min (90-130); Glucose 133 mg/dL (65-115); Osmolality Calculated 284 mOsm/kg (285-295); Sodium 137 mmol/L (136-145)
--- NOTE | 2024-05-30 16:07 | PC.NURSE ---
pt family took patient purse and jewelry home, pt has remaining rings that cannot be removed.
--- NOTE | 2024-05-30 16:08 | PC.NURSE ---
Admitting hospitalist assessed pt's home medications with family, pt had: Trazodone: 30 day supply, filled on 05/07/2024; no tabs left Xanax: 120 day supply, filled on 05/25/2024; 29 tabs left *family took pt medications home with them*
--- NOTE | 2024-05-30 16:15 | PC.NURSE ---
BAM medication vial sent with [facility] [employer] [facility] to contact pharmacy to dispose of medication. Vial label states container holds 11mL of medication.
--- NOTE | 2024-05-30 16:18 | PC.NURSE ---
report called to ICU, Ila, no further questions at end of report.
--- NOTE | 2024-05-30 16:18 | PC.NURSE ---
spoke with poison control, updated on finding pt medications missing; poison control states: Trazodone peak 1-2 hours; Xanax peak 1-2 hours, with extended half life.
--- NOTE | 2024-05-30 16:27 | PC.NURSE ---
this nurse witnesses drawing up and disposal of medication BAM with Pharmacy and Lap Machine Tender, 11mL withdrawn from vial and disposed of in [facility] container
--- NOTE | 2024-05-30 17:16 | PC.NURSE ---
Upon transfer to ICU, patient opened her eyes and said, am I in group home? patient oriented to hospital and room, patient then asked for some ice and began snoring,this nurse was then unable to wake patient. See charted vitals.
--- NOTE | 2024-05-30 18:00 | ECG_ITS ---
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 Measurements Intervals [place] Rate: 53 P: 75 CT: 150 QRS: 67 QRSD: 88 T: 53 QT: 459 QTc: 433 Interpretive Statements SINUS BRADYCARDIA POSSIBLE LEFT ATRIAL ENLARGEMENT [-0.1mV P-WAVE IN V1/V2] Compared to ECG 05/30/2024 15:26:58 No significant changes Electronically Signed On 06-02-2024 00:53:19 CDT by Maureen Gasca M.D. [id number]
--- NOTE | 2024-05-30 20:19 | PC.NURSE ---
Patient becoming more agitated and wanting water upon waking. This nurse received order from hospitalist to start with water and assess how patient tolerates. Patient refusing all care from this nurse.
--- NOTE | 2024-05-30 20:35 | PC.RESP ---
2034 Pt refused EKG and took off POX probe RN just placed back on her.
--- NOTE | 2024-05-30 20:52 | PC.NURSE ---
Patient continues to become more aggravated, asked duct layer supervisor to come and have a talk with patient and go over patient rights again. Patient appeared to calm down. Patient refusing all care. Will not allow nurse to touch or assess. I've assessed what i'm able to from a distance. Patient is now alert and oriented. Patient has a fully functional airway.
[2024-05-30 20:53] LABS: Alanine Aminotransferase 18 U/L (0-33); Albumin Level 3.7 g/dL (3.5-5.2); Alkaline Phosphatase 63 U/L (35-105); Anion Gap 14.1 (5-19); Aspartate Amino Transferase 14 U/L (0-32); Blood Urea Nitrogen 8 mg/dL (6-20); Calcium 8.4 mg/dL (8.5-10.5); Carbon Dioxide 21 mmol/L (22-29); Chloride 108 mmol/L (98-107); Creatinine Clr Calc Pharmacy 71.1951; Globulin 2.7 g/dL (1.3-4.6); Glomerular Filtration Rate 67.7 mL/min (90-130); Glucose 102 mg/dL (65-115); Osmolality Calculated 287 mOsm/kg (285-295); Potassium 4.1 mmol/L (3.5-5.1); Sodium 139 mmol/L (136-145); Total Bilirubin 0.2 mg/dL (0.15-1.2); Total Protein 6.4 g/dL (6.6-8.7)
[2024-05-31] VITALS (69 sets, daily range): BP systolic 107–181; BP diastolic 64–126; PULSE 59–91; RESP 12–29; TEMP 36.7–37.2; O2SAT 94–100
--- NOTE | 2024-05-31 01:11 | PC.NURSE ---
Patient still refusing all care. Nurse offered water and asked if I could take vital signs.
[2024-05-31 04:49] LABS: Basophils # 0.1 10^3/uL (0.0-0.1); Basophils % 0.9 %; Eosinophils # 0.2 10^3/uL (0.0-0.8); Eosinophils % 2.3 %; Hematocrit 42.9 % (36-47); Lymphocytes # 3.4 10^3/uL (0.8-4.8); Lymphocytes % 48.4 %; Mean Corpuscular HGB Conc 31.9 g/dL (30-55); Mean Corpuscular Volume 90.7 fl (85-98); Mean Platelet Volume 9.8 fL (7.4-10.4); Monocytes # 0.5 10^3/uL (0.2-0.9); Monocytes % 6.7 %; Neutrophils % 41.3 %; Nucleated Red Blood Cells % 0 %; Platelet Count 216 10^3/cmm (157-399); Red Blood Count 4.73 10^6/uL (3.85-5.65); White Blood Count 7.01 10^3/uL (3.29-11.43)
[2024-05-31] MEDS: sodium chloride 0.9% 1,000 ML 75 ML IV (04:49)
[2024-05-31 05:14] LABS: Alanine Aminotransferase 17 U/L (0-33); Albumin Level 3.2 g/dL (3.5-5.2); Alkaline Phosphatase 54 U/L (35-105); Anion Gap 13.8 (5-19); Aspartate Amino Transferase 13 U/L (0-32); Blood Urea Nitrogen 8 mg/dL (6-20); Calcium 7.9 mg/dL (8.5-10.5); Carbon Dioxide 19 mmol/L (22-29); Chloride 109 mmol/L (98-107); Creatinine Clr Calc Pharmacy 80.0945; Globulin 2.8 g/dL (1.3-4.6); Glomerular Filtration Rate 77.6 mL/min (90-130); Glucose 79 mg/dL (65-115); Magnesium 1.9 mg/dL (1.7-2.3); Osmolality Calculated 283 mOsm/kg (285-295); Potassium 3.8 mmol/L (3.5-5.1); Sodium 138 mmol/L (136-145); Total Bilirubin 0.3 mg/dL (0.15-1.2)
--- NOTE | 2024-05-31 08:29 | PC.NURSE ---
Sat at length explaining results of all lab work with patient per patient request. Patient continues to repeat that she just needs to know the results of her lab work.
--- NOTE | 2024-05-31 08:36 | PC.NURSE ---
Sodium chloride not running at start of day shift. Per administration internship nurse, patient refuses. Updated MAR to reflect pause. Patient states she will remove IV access if fluids reconnected.
[2024-05-31 08:52] LABS: Alanine Aminotransferase 18 U/L (0-33); Albumin Level 3.8 g/dL (3.5-5.2); Alkaline Phosphatase 66 U/L (35-105); Anion Gap 14.2 (5-19); Aspartate Amino Transferase 15 U/L (0-32); Blood Urea Nitrogen 7 mg/dL (6-20); Calcium 8.1 mg/dL (8.5-10.5); Carbon Dioxide 24 mmol/L (22-29); Chloride 106 mmol/L (98-107); Creatinine Clr Calc Pharmacy 70.8058; Glomerular Filtration Rate 67.7 mL/min (90-130); Glucose 78 mg/dL (65-115); Osmolality Calculated 287 mOsm/kg (285-295); Potassium 4.2 mmol/L (3.5-5.1); Sodium 140 mmol/L (136-145); Total Bilirubin 0.3 mg/dL (0.15-1.2); Total Protein 6.8 g/dL (6.6-8.7)
[2024-05-31] MEDS: LORazepam 2 mg/mL INJ 1 mL 1 MG IVP (09:01)
[2024-05-31] MEDS: ibuprofen 200 mg Tablet 400 MG PO (11:14)
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
--- NOTE | 2024-05-31 11:43 | PM.MISC ---
Miscellaneous Note Purpose of Documentation: ave Note: I talked with the nurse that undressed the patient in the emergency department yesterday. He reports that when he pulled her pants off, the vial of BAM was inside her pants. It was not in a pocket, it had been placed down inside her pant leg adjacent to her skin. This is a major discrepancy from what the patient told me. She is clearly not being straightforward.
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
--- NOTE | 2024-05-31 12:39 | PC.NURSE ---
Report called to [facility]. Will transfer patient after she is finished with afternoon meal.
--- NOTE | 2024-05-31 14:07 | PC.NURSE ---
Patient arrived to the unit and immediately began using the phone, appearing to be irritated that staff was going to do an assessment. She stated to the person on the phone, I got to get off here. They're wanting me to get in my crazy people clothes. When this RN asked her if she remembered what happened before she had lost consciousness she rolled her eyes and said, oh my God, I keep having to repeat this to people. I was at [facility] and I got in my car and I don't remember after that. This RN then asked if she remembered taking any medications prior to this and she said she remembered getting dressed and doing her hair and sarcastically asked, how far do you want me to go back? She denies current si/hi and avh. Patient does endorse poor appetite but states it doesn't have anything to do with her mental status. She denies any current substance abuse other than smoking 1.5 ppd of tobacco. During report ER nurse, Peter, stated patient is believed to have overdosed on potentially either one or a combination of trazodone, xanax, and/or animal tranquilizer. The animal tranquilizer was found in her pocket and is reported to have had a hole on the top of it that appeared to be a puncture jayna from a needle.
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
[2024-05-31] MEDS: ALPRAZolam 0.5 mg Tablet 1 MG PO ×2 (14:43→18:33)
[2024-05-31] MEDS: ibuprofen 600 mg Tablet PO (18:33)
[2024-05-31] MEDS: trazodone 50 mg Tablet PO (22:53)
[2024-05-31] MEDS: hyDROXYzine 25 mg Capsule 50 MG PO (22:54)
[2024-06-01] MEDS: ALPRAZolam 0.5 mg Tablet 1 MG PO ×3 (00:47→12:22)
[2024-06-01 06:00] VITALS: BP 131/75; PULSE 75; RESP 16; TEMP 36.9; O2SAT 98
[2024-06-01] MEDS: ibuprofen 600 mg Tablet PO (06:13)
[2024-06-01 07:54] LABS: Basophils # 0.1 10^3/uL (0.0-0.1); Basophils % 0.9 %; Eosinophils # 0.2 10^3/uL (0.0-0.8); Eosinophils % 2.6 %; Hematocrit 42.5 % (36-47); Lymphocytes # 3.1 10^3/uL (0.8-4.8); Lymphocytes % 47.1 %; Mean Corpuscular HGB Conc 32.7 g/dL (30-55); Mean Corpuscular Hemoglobin 28.8 pg (27-33); Mean Corpuscular Volume 88.2 fl (85-98); Mean Platelet Volume 9.5 fL (7.4-10.4); Monocytes # 0.4 10^3/uL (0.2-0.9); Monocytes % 5.8 %; Neutrophils # 2.84 10^3/uL (1.8-7.7); Neutrophils % 43.3 %; Nucleated Red Blood Cells % 0 %; Platelet Count 252 10^3/cmm (157-399); Red Blood Count 4.82 10^6/uL (3.85-5.65); Red Cell Distribution Width 14.6 % (12.1-15.1); White Blood Count 6.56 10^3/uL (3.29-11.43)
[2024-06-01 08:34] LABS: Anion Gap 15.1 (5-19); Blood Urea Nitrogen 6 mg/dL (6-20); Calcium 8.3 mg/dL (8.5-10.5); Carbon Dioxide 22 mmol/L (22-29); Chloride 105 mmol/L (98-107); Creatinine Clr Calc Pharmacy 79.6565; Glomerular Filtration Rate 77.6 mL/min (90-130); Glucose 118 mg/dL (65-115); Osmolality Calculated 285 mOsm/kg (285-295); Potassium 4.1 mmol/L (3.5-5.1); Sodium 138 mmol/L (136-145)
--- NOTE | 2024-06-01 08:54 | PC.NURSE ---
Patient refused protonix this morning, stating that she does not want to take this medication.
--- NOTE | 2024-06-01 09:18 | PC.NURSE ---
Morning assessment During morning assessment, patient reports frequent anxiety, but denies this currently. patient reports a history of panic attacks. Patient denies SI, HI, AVH, and depression. Patient stated that she typically uses a couple of five-hour energy drinks per day and cigarettes. This nurse offered nicotine, but patient declined. Patient was also offered coffee and tea. Patient cooperative and calm during assessment. Patient somewhat guarded, and did not seem to think she needed any medications despite recent suicide attempt.
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
[2024-06-01 14:43] VITALS: BP 131/75; PULSE 75; RESP 16; TEMP 36.9; O2SAT 98
== END 2024-06-01 15:25 | disposition home or self-care (01) | DRG 917 ==
LOC: ER 14:59 → ICU 15:25 → NP 05-31 12:55
PROVIDERS: Admitting Provider Internal Medicine; Emergency Provider Emergency Medicine; PCP Family Medicine; Visit Provider Student in an Organized Health Care Education/Training Program
DX: T42.6X2A Poisoning by other antiepileptic and sedative-hypnotic drugs, intentional self-harm, initial encounter (principal); R40.2A Nontraumatic coma due to underlying condition; G40.409 Other generalized epilepsy and epileptic syndromes, not intractable, without status epilepticus; F41.9 Anxiety disorder, unspecified; F32.A Depression, unspecified; Y92.524 Gas station as the place of occurrence of the external cause; Z91.148 Patient's other noncompliance with medication regimen for other reason
CPT/HCPCS: 36415; 36416; 36600; 51702; 70450; 70496; 70498; 71045; 80048; 80051; 80053; 80306; 80307; 81025; 82330; 82805; 82962; 83735; 84145; 85025; 85610; 87040; 87077; 87150; 87186; 87205; 93005; 94664; 96365; 96372; 96374; 96375; 96376; 97165; 99291; 99292; J0696; J1644; J2060; J2310; J7030